=== PATIENT | female | born 1960 ===

== ENCOUNTER 2017-09-24 18:41 | Emergency (ER) | payer BC ==
[2017-09-24 18:52] VITALS: BP 145/69
--- NOTE | 2017-09-24 19:13 | UC ---
Respiratory Complaint HPI - HPI Summary HPI Summary: Has had mild productive cough for 1.5 weeks, no fever or nasal congestion or trouble breathing. Nasal congestion increased starting 2-3 days ago, temp of 99 yesterday and day before, chest tightness and anxiety last night, getting bad again tonight and now temperature is high tonight. - History of Current Complaint Chief Complaint: UCRespiratory Stated Complaint: SOB Time Seen by Provider: 09/24/17 18:49 Hx Obtained From: Patient Hx Last Menstrual Period: none for 3 months - irreg now ?: No Onset/Duration: Gradual Onset, Lasting Weeks Timing: Constant Severity Initially: Mild Severity Currently: Moderate Character: Cough: Productive Aggravating Factors: Deep Breaths, Recumbent Position Alleviating Factors: Upright Position Associated Signs And Symptoms: Positive: Fever, Chills, Pleuritic Chest Pain, Wheezing, URI, Nasal Congestion - Allergies/Home Medications Allergies/Adverse Reactions: Allergies Allergy/AdvReac Type Severity Reaction Status Date / Time Codeine Allergy Severe GI UPSET, Verified 09/24/17 18:52 "FUZZY HEADED" Penicillins Allergy Hives Verified 09/24/17 18:52 Home Medications: Home Medications GuaiFENesin DM sugar free* [Robitussin DM sugar free*] PRN 09/24/17 [History] Multiple Vitamins W/ Minerals [Alive Energy 50+] 1 tab PO DAILY 09/24/17 [ History Confirmed 09/24/17] PMH/Surg Hx/FS Hx/Imm Hx Cardiovascular History: Hypertension - Surgical History Surgical History: Yes Surgery Procedure, Year, and Place: ovarian cyst and right ovary removed. umbilical hernia repair. tonsillectomy - Family History Known Family History: Positive: Hypertension - Social History Occupation: Retired Lives: With Family Alcohol Use: Occasionally Substance Use Type: None Smoking Status (MU): Never Smoked Tobacco Review of Systems Constitutional: Fever, Chills, Fatigue Skin: Negative Eyes: Negative ENT: Nasal Discharge Respiratory: Shortness Of Breath, Cough, Other - wheezing Cardiovascular: Negative Gastrointestinal: Negative Genitourinary: Negative Motor: Negative Neurovascular: Negative Musculoskeletal: Negative Neurological: Negative Psychological: Negative Is Patient Immunocompromised?: No All Other Systems Reviewed And Are Negative: Yes Physical Exam Triage Information Reviewed: Yes Appearance: Ill-Appearing, Obese Vital Signs: Initial Vital Signs Temp 101.1 F 09/24/17 18:47 Pulse 98 09/24/17 18:47 Resp 20 09/24/17 18:47 BP 145/69 09/24/17 18:47 Pulse Ox 97 09/24/17 18:47 Vital Signs Reviewed: Yes Eye Exam: Normal Eyes: Positive: Conjunctiva Clear ENT: Positive: Hearing grossly normal, Nasal congestion, TMs normal Dental Exam: Normal Neck exam: Normal Neck: Positive: Supple, Nontender, No Lymphadenopathy Respiratory: Positive: No respiratory distress, Rhonchi, Wheezing, Other: - mild tachypnea, pt appears anxious Cardiovascular Exam: Normal Cardiovascular: Positive: RRR, No Murmur Musculoskeletal Exam: Normal Neurological Exam: Normal Neurological: Positive: Alert Psychological Exam: Normal Skin Exam: Normal UC Diagnostic Evaluation - Laboratory O2 Sat by Pulse Oximetry: 97 - Radiology Xray Interpretation: Positive (See Comments) - RUL pneumonia Radiology Interpretation Completed By: Radiologist Re-Evaluation - Re-Evaluation First Eval Re-Evaluation Time: 19:30 Change: Improved - airm movement increased, pt reports some improvement Respiratory Course/Dx - Differential Dx/Diagnosis Provider Diagnoses: R upper lobe pneumonia. bronchospasm Discharge - Discharge Plan Condition: Stable Disposition: HOME Prescriptions: Levofloxacin TAB* [Levaquin TAB*] 500 mg PO DAILY #7 tab Patient Education Materials: Pneumonia (ED), Bronchospasm (ED) Referrals: Will Canales NP [Nurse Practitioner] - 3 Days Additional Instructions: Please see Will Canales this week for follow-up. If you have severe trouble breathing that the albuterol inhaler does not help, please go to the nearest emergency department.
[2017-09-24] MEDS ORDERED: Albuterol HFA INHALER* 8 gm MDI INH ONE (19:14)
--- NOTE | 2017-09-24 19:18 | RAD ---
Indication: Cough, fever. 2 views of the chest including dual energy PA views are reviewed. No mediastinal shift is noted. Heart is of normal size and configuration. There is suggestion of right upper lobe airspace disease suspicious for right upper lobe pneumonia. IMPRESSION: There is likely right upper lobe pneumonia present.
[2017-09-24] MEDS ORDERED: predniSONE TAB* 20 MG PO ONE (19:25)
[2017-09-24] MEDS ORDERED: Levofloxacin TAB* 500 MG PO ONE (19:30)
== END 2017-09-24 19:40 | disposition home or self-care (01) ==
LOC: UCEAST 18:41
DX: J18.9 Pneumonia, unspecified organism (principal); J98.01 Acute bronchospasm; Z72.89 Other problems related to lifestyle
CPT/HCPCS: 71046; 87502; 99203; A9270-GY; G0463; J7512

== ENCOUNTER 2017-10-01 11:03 | Emergency (ER) | payer BC ==
[2017-10-01 11:28] VITALS: BP 144/61
--- NOTE | 2017-10-01 14:31 | UC ---
Danie Navarro Stephanie, scribed for Palomo Minaya MD on 10/01/17 at 1401 . Shortness of Breath HPI - HPI Summary HPI Summary: The pt is a 57 y/o F presenting to with SOB that began 1.5 weeks ago. Symptoms include chest pain described as heaviness,productive cough with thick mucus and L ear soreness. The pt denies calf pain and calf swelling. The pt presented to on 09/24/16 with pneumonia. The pt reports taking her last dose of abx this morning. The pt reports not being able to get an appointment with her PCP to follow up with her illness. - History of Current Complaint Chief Complaint: UCRespiratory Stated Complaint: SHORT OF BREATH Time Seen by Provider: 10/01/17 13:26 Hx Obtained From: Patient Hx Last Menstrual Period: none for 3 months - irreg now ?: No Onset/Duration: Lasting Weeks - 1.5, Still Present Timing: Constant Aggrevating Factors: Nothing Alleviating Factors: Nothing Associated Signs & Symptoms: Positive: Cough (Productive) - thick mucus, Chest Pain Unrelated to Cough, Other - L ear soreness. Negative: Calf Pain/Swelling - Allergy/Home Medications Allergies/Adverse Reactions: Allergies Allergy/AdvReac Type Severity Reaction Status Date / Time Codeine Allergy Severe GI UPSET, Verified 10/01/17 11:28 "FUZZY HEADED" Penicillins Allergy Hives Verified 10/01/17 11:28 PMH/Surg Hx/FS Hx/Imm Hx Cardiovascular History: Hypertension - Surgical History Surgical History: Yes Surgery Procedure, Year, and Place: ovarian cyst and right ovary removed. umbilical hernia repair. tonsillectomy - Family History Known Family History: Positive: Hypertension - Social History Occupation: Retired Lives: With Family Alcohol Use: Occasionally Substance Use Type: None Smoking Status (MU): Never Smoked Tobacco - Immunization History Most Recent Influenza Vaccination: none Review of Systems Constitutional: Negative Skin: Negative Eyes: Negative ENT: Ear Ache - L ear soreness Respiratory: Cough - productive with thick mucus Cardiovascular: Chest Pain - heaviness Gastrointestinal: Negative Genitourinary: Negative Motor: Negative Neurovascular: Negative Musculoskeletal: Negative Neurological: Negative Psychological: Negative All Other Systems Reviewed And Are Negative: Yes Physical Exam Triage Information Reviewed: Yes Vital Signs: Initial Vital Signs Temp 98.4 F 10/01/17 11:22 Pulse 70 10/01/17 11:22 Resp 14 10/01/17 11:22 BP 144/61 10/01/17 11:22 Pulse Ox 98 10/01/17 11:22 Vital Signs Reviewed: Yes - Additional Comments General: Mildly ill-appearing, mild pain distress Skin: warm, color reflects adequate perfusion, dry Head: normal Eyes: EOMI, BRANDON ENT: normal, TMs nml, Posterior pharynx nml. Neck: supple, nontender Respiratory: Rare wheeze, breath sounds present Cardiovascular: RRR Abdomen: soft, nontender Bowel: present Musculoskeletal: normal, strength/ROM intact Neurological: normal, sensory/motor intact, A&O x3 Psychological: affect/mood appropriate Shortness of Breath Dx - Course Course Of Treatment: Medications reviewed. PATIENT REPORTS SHE IS IMPROVED FROM 1 WEEK AGO BUT, SINCE STOPPING THE STEROID, SHE IS NO LONGER IMPROVING. DISCUSSED ED EVAL FOR WORSENING. WILL CONTINUE THE LEVAQUIN FOR 7 MORE FRANCIS AND THE PREDNISONE FOR 5 MORE DAYS. F/U PMD; TO ED IF WORSE. - Differential Dx/Diagnosis Provider Diagnoses: PNEUMONIA Discharge - Discharge Plan Condition: Stable Disposition: HOME Prescriptions: Albuterol HFA INHALER* [Ventolin HFA Inhaler*] 2 puff INH Q4H PRN #1 mdi PRN Reason: Dyspnea Levofloxacin TAB* [Levaquin TAB*] 500 mg PO DAILY #7 tab predniSONE TAB* [Deltasone TAB*] 40 mg PO DAILY #10 tab Patient Education Materials: Community Acquired Pneumonia (ED) Referrals: Will Canales NP [Primary Care Provider] - Additional Instructions: FOLLOW UP WITH YOUR DOCTOR. GO TO THE EMERGENCY DEPARTMENT FOR ANY WORSENING OF YOUR CONDITION OR QUESTIONS OR CONCERNS. The documentation as recorded by the Danie jean Stephanie accurately reflects the service I personally performed and the decisions made by me, Palomo Minaya MD.
== END 2017-10-01 13:48 | disposition home or self-care (01) ==
LOC: UCEAST 11:03
DX: J18.9 Pneumonia, unspecified organism (principal); H92.02 Otalgia, left ear; I10 Essential (primary) hypertension; Z88.5 Allergy status to narcotic agent; Z88.0 Allergy status to penicillin
CPT/HCPCS: 99212; G0463

== ENCOUNTER 2018-06-02 13:44 | Emergency (ER) | payer BC ==
[2018-06-02 14:38] VITALS: BP 117/68
--- NOTE | 2018-06-02 16:06 | UC ---
[facility] HPI - HPI Summary HPI Summary: pain and swelling right lower jaw---for 2-3 days-will see the dentist this week - History of Current Complaint Chief Complaint: UCDentalProblem Stated Complaint: TOOTHACHE Time Seen by Provider: 06/02/18 15:57 Hx Obtained From: Patient Hx Last Menstrual Period: none for 3 months - irreg now ?: No Onset/Duration: Sudden Onset Pain Intensity: 8 Pain Scale Used: 0-10 Numeric Aggravating Factor(s): Chewing Alleviating Factor(s): OTC Meds Related History: Previous Dental Care on Same Tooth - tooth has had a root canal - Allergies/Home Medications Allergies/Adverse Reactions: Allergies Allergy/AdvReac Type Severity Reaction Status Date / Time codeine Allergy GI Upset Verified 06/02/18 14:38 Penicillins Allergy Hives Verified 06/02/18 14:38 Home Medications: Home Medications Ibuprofen 800 mg PO 06/02/18 [History] PMH/Surg Hx/FS Hx/Imm Hx Previously Healthy: No Endocrine History: Dyslipidemia - Surgical History Surgical History: Yes Surgery Procedure, Year, and Place: ovarian cyst and right ovary removed. umbilical hernia repair. tonsillectomy - Family History Known Family History: Positive: Hypertension - Social History Occupation: Employed Full-time Lives: With Family Alcohol Use: None Substance Use Type: None Smoking Status (MU): Never Smoked Tobacco - Immunization History Most Recent Influenza Vaccination: none Review of Systems Constitutional: Negative Skin: Negative Eyes: Negative ENT: Dental Pain - right lower jaw last molar Respiratory: Negative Cardiovascular: Negative Gastrointestinal: Negative Genitourinary: Negative Motor: Negative Neurovascular: Negative Musculoskeletal: Negative Neurological: Negative Psychological: Negative Is Patient Immunocompromised?: No All Other Systems Reviewed And Are Negative: Yes Physical Exam Triage Information Reviewed: Yes Appearance: Well-Appearing, No Pain Distress, Well-Nourished Vital Signs: Initial Vital Signs Temp 98.2 F 06/02/18 14:33 Pulse 64 06/02/18 14:33 Resp 18 06/02/18 14:33 BP 117/68 06/02/18 14:33 Pulse Ox 98 06/02/18 14:33 Vital Signs Reviewed: Yes Eye Exam: Normal Eyes: Positive: Conjunctiva Clear ENT Exam: Normal ENT: Positive: Normal ENT inspection, Hearing grossly normal. Negative: Trismus , Muffled voice, Hoarse voice Dental Exam: Normal Neck exam: Normal Neck: Positive: 1 Respiratory Exam: Normal Respiratory: Positive: Chest non-tender, No respiratory distress, No accessory muscle use Cardiovascular Exam: Normal Cardiovascular: Positive: RRR, Pulses Normal, Brisk Capillary Refill Musculoskeletal Exam: Normal Musculoskeletal: Positive: Strength Intact, ROM Intact Neurological Exam: Normal Neurological: Positive: Alert, Muscle Tone Normal Psychological Exam: Normal Skin Exam: Normal Dental Complaint Course/Dx - Course Course Of Treatment: patient states pain is ok with Ibuprofen and refuses additional pain medicine, will start clindamycin and probiotic, follow with dentist this week - Differential Dx/Diagnosis Provider Diagnoses: dental infection right lower jaw- Discharge - Sign-Out/Discharge Documenting (check all that apply): Patient Departure All imaging exams completed and their final reports reviewed: No Studies - Discharge Plan Condition: Stable Disposition: HOME Prescriptions: Clindamycin Cap(NF) [Clindamycin Cap 300 mg Cap(NF)] 300 mg PO Q6H #40 cap Patient Education Materials: Probiotic (By mouth), Dental Abscess (ED) Referrals: Will Canales NP [Primary Care Provider] - Additional Instructions: Follow with dentist this week - Billing Disposition and Condition Condition: STABLE Disposition: Home
== END 2018-06-02 16:23 | disposition home or self-care (01) ==
LOC: UCEAST 13:44
DX: M27.2 Inflammatory conditions of jaws (principal); Z88.5 Allergy status to narcotic agent; Z88.0 Allergy status to penicillin
CPT/HCPCS: 99212; G0463